=== PATIENT | female | born 1960 | race Caucasian/White ===

== ENCOUNTER 2025-08-09 12:39 | Emergency (ER) | payer MEDICARE ==
[~2025-08-09] VITALS: Ht 167.6 cm; Wt 52.2 kg
[~2025-08-09 12:39] MED LIST: ALBUTEROL0.09 MG/A2 IH; ATIVAN1 MG PO; DIFLUCAN150 MG PO; HYDROCODONE BIT1 T11 PO; MOTRIN800 MG PO; NAPROSYN EC375 MG PO; NORVASC5 MG PO; PREDNICOT10 MG PO; PREDNISONE20 M1 PO; PROAIR HFA8.5 GM INH; ROBITUSSIN AC 110 ML PO; VIBRAMYCIN100 MG PO; VICODIN 500 MG-1 TAB PO; ZITHROMAX250 MG PO
[2025-08-09] MEDS ORDERED: NAPROSYN500 MG PO (14:46)
== END 2025-08-09 15:13 | disposition home or self-care (01) ==
LOC: ED 12:39
DX: S82.201A Unspecified fracture of shaft of right tibia, initial encounter for closed fracture (principal); J44.9 Chronic obstructive pulmonary disease, unspecified; Z90.710 Acquired absence of both cervix and uterus; Z79.899 Other long term (current) drug therapy; W20.8XXA Other cause of strike by thrown, projected or falling object, initial encounter; Y93.89 Activity, other specified; Y92.89 Other specified places as the place of occurrence of the external cause; Y99.8 Other external cause status